=== PATIENT | female | born 1990 | race African-American/Black ===

== ENCOUNTER 2020-12-03 11:02 | Emergency (ER) | payer MEDICAID, OTHER ==
[~2020-12-03] VITALS: Ht 170.2 cm; Wt 112.0 kg
[2020-12-03] MEDS ORDERED: PREN-170 PO (11:08)
[2020-12-03 12:10] LABS: CLARITY URINE CLOUDY (CLEAR); COLOR URINE YELLOW (YELLOW); KETONES URINE NEGATIVE (NEGATIVE); LEUKOCYTE ESTERASE URINE 3+ (NEGATIVE); NITRITE URINE NEGATIVE (NEGATIVE); OCCULT BLOOD URINE NEGATIVE (NEGATIVE); PROTEIN URINE NEGATIVE (NEGATIVE); SPECIFIC GRAVITY URINE 1.024 (1.005-1.030)
[2020-12-03 12:22] VITALS: BP 113/79
[2020-12-03] MEDS ORDERED: CEPH250C2 MT (15:50)
== END 2020-12-03 15:58 | disposition home or self-care (01) ==
LOC: ER 11:02
DX: O26.892 Other specified pregnancy related conditions, second trimester (principal); O20.9 Hemorrhage in early pregnancy, unspecified; R78.81 Bacteremia; E05.90 Thyrotoxicosis, unspecified without thyrotoxic crisis or storm; Z3A.14 14 weeks gestation of pregnancy
CPT/HCPCS: 36415; 76801; 81003; 86900; 99284